=== PATIENT | male | born 1965 | race Caucasian/White ===

== ENCOUNTER → 2016-09-23 | Outpatient (CLI) | payer BC ==
[2016-09-23 08:02] LABS: HEMOGLOBIN 14.5 gm/dl (14.0-17.5); RED BLOOD COUNT 4.78 M/UL (4.20-5.50); WHITE BLOOD COUNT 7.5 K/UL (4.5-11.0)
== END ==
LOC: LAB 07:41
PROVIDERS: Nurse Practitioner Family
DX: Z12.5 Encounter for screening for malignant neoplasm of prostate (principal); K29.70 Gastritis, unspecified, without bleeding; I10 Essential (primary) hypertension; E78.5 Hyperlipidemia, unspecified; E55.9 Vitamin D deficiency, unspecified
CPT/HCPCS: 36415; 80053; 80061; 84153; 84439; 84443; 85025

== ENCOUNTER → 2016-10-06 | Outpatient (CLI) | payer BC | LOC: US 10-01 15:30 | DX: N28.9 Disorder of kidney and ureter, unspecified (principal); R97.20 Elevated prostate specific antigen [PSA]; K76.0 Fatty (change of) liver, not elsewhere classified ==

== ENCOUNTER → 2020-12-15 | Outpatient (CLI) | payer BC ==
[~2020-12-15] MED LIST: AMARYL 2MG TABLE2 MG PO; ATORVASTATIN CA20 MG PO; LOPRESSOR 50 MG50 MG PO
== END ==
LOC: HEART 5 09:41
DX: R06.02 Shortness of breath (principal); R94.2 Abnormal results of pulmonary function studies
CPT/HCPCS: 94060; 94729

== ENCOUNTER → 2021-02-16 | Outpatient (CLI) | payer BC ==
[2021-02-16 16:26] LABS: HEMOGLOBIN 15.5 gm/dl (14.0-17.5); RED BLOOD COUNT 5.05 M/UL (4.20-5.50); WHITE BLOOD COUNT 8.4 K/UL (4.5-11.0)
[2021-02-16 17:08] LABS: BUN/CREATININE RATIO 12 (0-10)
[2021-02-17 08:14] LABS: SARS COV-2 IGG AB Positive (Negative); THYROXINE (T4) 5.4 ug/dL (4.5-12.0); VITAMIN D, 25-HYDROXY 32.8 ng/mL (30.0-100.0)
[2021-02-18 11:14] LABS: CREATININE, URINE 196.5 mg/dL (Not Estab.)
== END ==
LOC: LAB 15:28
PROVIDERS: Nurse Practitioner Family
DX: E11.9 Type 2 diabetes mellitus without complications (principal); E78.5 Hyperlipidemia, unspecified; R97.20 Elevated prostate specific antigen [PSA]; F41.9 Anxiety disorder, unspecified; E55.9 Vitamin D deficiency, unspecified; Z86.16 Personal history of COVID-19
CPT/HCPCS: 36415; 80053; 80061; 82043; 82570; 83036; 84153; 84436; 84443; 85025; 86769

== ENCOUNTER → 2021-06-02 | Outpatient (CLI) | payer SELFPAY ==
[2021-06-02 15:33] LABS: HEMOGLOBIN 16.2 gm/dl (14.0-17.5); RED BLOOD COUNT 5.35 M/UL (4.20-5.50); WHITE BLOOD COUNT 10.5 K/UL (4.5-11.0)
== END ==
LOC: LAB 14:59
PROVIDERS: Optometrist
DX: H49.12 Fourth [trochlear] nerve palsy, left eye (principal)
CPT/HCPCS: 36415; 82565; 83036; 84520; 85025; 85652; 86140

== ENCOUNTER → 2021-06-03 | Outpatient (CLI) | payer BC | LOC: MRI 09:26 → EMI 09:26 → MRI 11:00 | DX: H49.12 Fourth [trochlear] nerve palsy, left eye (principal); R93.0 Abnormal findings on diagnostic imaging of skull and head, not elsewhere classified | CPT/HCPCS: 70553; A9577 ==

== ENCOUNTER → 2021-12-29 | Outpatient (CLI) | payer BC ==
[2021-12-29 16:19] LABS: HEMOGLOBIN 17.2 gm/dl (14.0-17.5); RED BLOOD COUNT 5.67 M/UL (4.20-5.50); WHITE BLOOD COUNT 8.8 K/UL (4.5-11.0)
[2021-12-30 07:10] LABS: ANTISTREPTOLYSIN O AB 23.7 IU/mL (0.0-200.0); RHEUMATOID ARTHRITIS FACTOR <10.0 IU/mL (<14.0); VITAMIN D, 25-HYDROXY 30.9 ng/mL (30.0-100.0)
[2021-12-30 12:14] LABS: CREATININE, URINE 178.4 mg/dL (Not Estab.); SARS-COV-2 SEMI-QUANT TOTAL AB See Dilution U/mL (Negative<0.8); SARS-COV-2 SPIKE AB INTERP Positive (.)
== END ==
LOC: LAB 13:10
PROVIDERS: Nurse Practitioner Family
DX: E11.9 Type 2 diabetes mellitus without complications (principal); E78.5 Hyperlipidemia, unspecified; R97.20 Elevated prostate specific antigen [PSA]; E55.9 Vitamin D deficiency, unspecified; M25.50 Pain in unspecified joint; Z86.16 Personal history of COVID-19; Z20.822 Contact with and (suspected) exposure to COVID-19
CPT/HCPCS: 36415; 80053; 80061; 82043; 82570; 83036; 84153; 84439; 84443; 84550; 85025; 85652; 86038; 86060; 86140; 86431